=== PATIENT | female | born 1995 | race Two or more races ===

== ENCOUNTER 2020-01-03 04:20 | Emergency (ER) | payer OTHER ==
[~2020-01-03] VITALS: Ht 165.1 cm; Wt 133.5 kg
[2020-01-03] MEDS: ASPIRIN 81MG TABLET PO SCH ×2 (05:04→05:25)
[2020-01-03 05:19] LABS: BASOPHILS % 0.6 % (0.0-2.0); EOSINOPHILS % 0.8 % (0.0-5.0); HEMATOCRIT. 24.8 % (36.0-48.0); HEMOGLOBIN. 8.2 g/dL (12.0-16.0); LYMPHOCYTES % 16.7 % (20.0-50.0); MEAN CORPUSCULAR HEMOGLOBIN 26.2 pg (28.0-32.0); MEAN CORPUSCULAR VOLUME 78.7 fL (81.0-99.0); MEAN PLATELET VOLUME 8.2 fl (7.4-10.4); MONOCYTES % 8.7 % (2.0-8.0); NEUTROPHILS % 73.2 % (40.0-76.0); PLATELET 323 x1000/uL (130-400); RED BLOOD CELL COUNT 3.15 mill/uL (4.2-5.4); RED CELL DISTRIBUTION WIDTH 16.9 % (11.6-14.6)
[2020-01-03 05:26] LABS: CHLORIDE 106 mEq/L (98-107)
[2020-01-03 05:30] LABS: ETHANOL BLOOD < 10 mg/dL
[2020-01-03 06:18] LABS: *AMPHETAMINES SCREEN URINE NEGATIVE (NEGATIVE); *BARBITURATES SCREEN URINE NEGATIVE (NEGATIVE); *BENZODIAZEPINES SCREEN URINE NEGATIVE (NEGATIVE); *COCAINE SCREEN URINE NEGATIVE (NEGATIVE); METHADONE URINE SCREEN NEGATIVE (NEGATIVE); OPIATES URINE SCREEN NEGATIVE (NEGATIVE)
[2020-01-03 06:19] LABS: CANNABINOID URINE SCREEN NEGATIVE (NEGATIVE); PHENCYCLIDINE URINE SCREEN NEGATIVE (NEGATIVE)
[2020-01-03] MEDS ORDERED: LIDOCAINE 5% PATCH TOP STA (06:36)
[2020-01-03] MEDS ORDERED: POTASSIUM CHLORIDE 20MEQ TABLET SR PO SCH (06:45)
[2020-01-03] MEDS ORDERED: ACETAMINOPHEN 500MG TABLET PO SCH (06:45)
[2020-01-03] MEDS ORDERED: IOHEXOL-350 100 ML BOTTLE ONE (10:53)
[2020-01-03] MEDS ORDERED: KETOROLAC 15MG/ML VIAL IV ONE (11:30)
[2020-01-03 11:36] VITALS: BP 145/87
== END 2020-01-03 13:37 | disposition home or self-care (01) ==
LOC: ER 04:20
DX: R07.89 Other chest pain (principal); M25.512 Pain in left shoulder; M54.2 Cervicalgia; Z88.2 Allergy status to sulfonamides
CPT/HCPCS: 36415; 71045; 71275; 73030; 80053; 80305; 80320; 84484; 85025; 85379; 93005; 96374; 99285; J1885; Q9967; Z7610; G0480

== ENCOUNTER 2020-10-18 01:34 | Emergency (ER) | payer OTHER ==
[~2020-10-18] VITALS: Ht 165.1 cm; Wt 148.0 kg
[2020-10-18] MEDS ORDERED: SODIUM CHLORIDE 0.9% 1,000 ML IV ONE (02:45)
[2020-10-18 03:14] LABS: *AMPHETAMINES SCREEN URINE NEGATIVE (NEGATIVE); *BARBITURATES SCREEN URINE NEGATIVE (NEGATIVE); *BENZODIAZEPINES SCREEN URINE NEGATIVE (NEGATIVE); *COCAINE SCREEN URINE NEGATIVE (NEGATIVE); METHADONE URINE SCREEN NEGATIVE (NEGATIVE); OPIATES URINE SCREEN NEGATIVE (NEGATIVE)
[2020-10-18 03:15] LABS: CANNABINOID URINE SCREEN NEGATIVE (NEGATIVE); PHENCYCLIDINE URINE SCREEN NEGATIVE (NEGATIVE)
[2020-10-18 03:19] LABS: HEMATOCRIT. 24.9 % (36.0-48.0); HEMOGLOBIN. 8.1 g/dL (12.0-16.0); MEAN CORPUSCULAR HEMOGLOBIN 27.7 pg (28.0-32.0); MEAN PLATELET VOLUME 7.8 fl (7.4-10.4); PLATELET 333 x1000/uL (130-400); RED BLOOD CELL COUNT 2.92 mill/uL (4.2-5.4); RED CELL DISTRIBUTION WIDTH 16.3 % (11.6-14.6)
[2020-10-18 03:43] LABS: CHLORIDE 106 mEq/L (98-107)
[2020-10-18 03:49] LABS: HCG SCREEN NEGATIVE
[2020-10-18 03:53] LABS: ETHANOL BLOOD < 10 mg/dL
[2020-10-18] MEDS ORDERED: IOHEXOL-350 100 ML BOTTLE ONE (05:33)
[2020-10-18 05:41] LABS: PLATELET ESTIMATE NORMAL
[2020-10-18] MEDS ORDERED: KETOROLAC 15MG/ML VIAL IV NR (06:00)
[2020-10-18 06:33] VITALS: BP 122/68
== END 2020-10-18 06:34 | disposition home or self-care (01) ==
LOC: ER 01:34
DX: R07.89 Other chest pain (principal); R06.02 Shortness of breath; Z88.2 Allergy status to sulfonamides
CPT/HCPCS: 36415; 71045; 71275; 80053; 80305; 80320; 81025; 83880; 84484; 84703; 85025; 85379; 93005; 96374; 99285; J1885; J7030; Q9967; G0480

== ENCOUNTER 2021-10-22 17:00 | Emergency (ER) | payer MEDICAID, OTHER ==
[~2021-10-22] VITALS: Ht 165.1 cm; Wt 140.0 kg
[2021-10-22] MEDS ORDERED: ONDANSETRON 4MG ODT PO STA (17:06)
[2021-10-22 20:54] LABS: CLARITY URINE CLEAR (CLEAR); COLOR URINE YELLOW (YELLOW); KETONES URINE NEGATIVE (NEGATIVE); LEUKOCYTE ESTERASE URINE NEGATIVE (NEGATIVE); NITRITE URINE POSITIVE (NEGATIVE); OCCULT BLOOD URINE NEGATIVE (NEGATIVE); PH URINE 6.5 (4.5-8.0); PROTEIN URINE NEGATIVE (NEGATIVE); SPECIFIC GRAVITY URINE 1.019 (1.005-1.030)
[2021-10-22] MEDS ORDERED: ONDA4TAB5 MT (21:49)
[2021-10-22] MEDS ORDERED: CEPH500C2 MT (21:49)
[2021-10-22 22:00] VITALS: BP 120/80
== END 2021-10-22 22:00 | disposition home or self-care (01) ==
LOC: ER 17:00
DX: N39.0 Urinary tract infection, site not specified (principal); R19.7 Diarrhea, unspecified
CPT/HCPCS: 81003; 81025; 82962; 99283; Q0162